=== PATIENT | female | born 1990 | race Caucasian/White ===

== ENCOUNTER 2024-12-07 19:08 | Emergency (ER) | payer BC, SELFPAY ==
--- NOTE | ~2024-12-07 | CT_ITS ---
EXAMINATION: CT abdomen pelvis w con DATE: 12/08/2024 01:47 INDICATION: Abdominal pain. Vomiting. Abnormal liver function tests. TECHNIQUE: Computed tomography (CT) of the abdomen and pelvis was performed with 100 mL Omnipaque 350 intravenous contrast. Automated exposure control and iterative reconstruction technique were employed. The dose-length product was 1615.42 mGy-cm. COMPARISON: None. FINDINGS: The lung bases demonstrate mild atelectasis. No pleural effusion. The heart size is normal. No pericardial effusion. The liver is normal. The gallbladder is normal in size. Material in the gallbladder may be sludge or stones. There are changes of gastric sleeve procedure. The spleen is normal. There is fat stranding around the pancreas, consistent with acute interstitial pancreatitis. The adrenal glands and right kidney are normal. There is a 5 mm stone in left kidney. There is diverticulosis of the colon without evidence of diverticulitis. There are no dilated loops of bowel. The appendix is normal. There are no pathologically enlarged lymph nodes. There is no free intraperitoneal fluid. There is severe lumbar spondylosis and mild thoracic spondylosis. IMPRESSION: 1. Acute interstitial pancreatitis. Reviewed, dictated and finalized at location E.
[2024-12-07 19:12] VITALS: BP 141/75; PULSE 67; RESP 18; TEMP 36.4; O2SAT 100
--- NOTE | 2024-12-07 21:37 | ED.ABDPAIN ---
HPI - Abdominal Pain General Chief Complaint: Abdominal Pain <Bridget Doyle PA-C - Last Filed: 12/08/24 14:11> Stated Complaint: abd pain, vomiting <Bridget Doyle PA-C - Last Filed: 12/08/24 14:11> Time Seen by Provider: 12/07/24 21:09 <Bridget Doyle PA-C - Last Filed: 12/08/24 14:11> Source: patient <Bridget Doyle PA-C - Last Filed: 12/08/24 14:11> Mode of arrival: ambulatory <DECLAN Castaneda Last Filed: 12/08/24 14:11> Limitations: no limitations <Bridget Doyle PA-C - Last Filed: 12/08/24 14:11> History of Present Illness HPI narrative: This is a 34 year old female that presents to the ER for abdominal pain. Ongoing over the last couple of days. Reports upper abdominal pain, nausea, vomiting. Not able to keep much down. <Bridget Doyle PA-C - Last Filed: 12/08/24 14:11> Related Data Allergies/Adverse Reactions: Allergies Allergy/AdvReac Type Severity Reaction Status Date / Time No Known Allergies Allergy Mild Unverified 03/23/08 10:20 <Bridget Doyle PA-C - Last Filed: 12/08/24 14:11> Review of Systems Review of Systems: All systems reviewed & are unremarkable except as noted in HPI and below <Bridget Doyle PA-C - Last Filed: 12/08/24 14:11> PMFSH Past Medical History Medical History: Medical History (Updated 12/08/24 @ 14:09 by Bridget Doyle PA-C) Diabetes mellitus <Bridget Doyle PA-C - Last Filed: 12/08/24 14:11> Exam Narrative: GENERAL: Well-appearing, well-nourished, and in no acute distress. HEAD: Normocephalic, atraumatic. EYES: EOMI. CHEST: Clear to auscultation. No respiratory distress. No wheezes rales or rhonchi HEART: Regular rate and rhythm. No murmur heard. Normal peripheral pulses. ABDOMEN: Soft, nondistended, normal active bowel sounds. Tender to palpation in epigastrium and right upper quadrant, without guarding EXTREMITIES: Normal range of motion. No edema. SKIN: Warm, dry, no rash. NEURO: No focal deficits. Alert and oriented x3. PSYCH: Normal mood and affect <Bridget Doyle PA-C - Last Filed: 12/08/24 14:11> Course [employer]ATION HELPER/PA Physician Supervision this visit was performed with an APC and myself. I performed all aspects of the MDM as documented. <Marcos Holden MD - Last Filed: 12/08/24 19:09> Consultations Consultation #1: spoke with general surgery about patient and workup. Recommends transfer to bariatric center due to previous gastric sleeve <Bridget Doyle PA-C - Last Filed: 12/08/24 14:11> Date: 12/08/24 <Bridget Doyle PA-C - Last Filed: 12/08/24 14:11> Consultation #2: [facility] accepts the patient as transfer <Bridget Doyle PA-C - Last Filed: 12/08/24 14:11> Date: 12/08/24 <Bridget Doyle PA-C - Last Filed: 12/08/24 14:11> Vital Signs Vital signs: Vital Signs Temperature 36.4 C L 12/07/24 19:12 Pulse Rate 67 12/07/24 19:12 Respiratory Rate 18 12/07/24 19:12 Blood Pressure 141/75 H 12/07/24 19:12 Pulse Oximetry 100 12/07/24 19:12 Oxygen Delivery Room Air 12/07/24 19:12 Temperature 36.6 C 12/08/24 07:49 Pulse Rate 62 12/08/24 07:49 Respiratory Rate 18 12/08/24 07:49 Blood Pressure 101/60 12/08/24 07:49 Pulse Oximetry 94 12/08/24 07:49 Oxygen Delivery Room Air 12/07/24 19:12 <Bridget Doyle PA-C - Last Filed: 12/08/24 14:11> Vital Signs Temperature 36.4 C L 12/07/24 19:12 Pulse Rate 67 12/07/24 19:12 Respiratory Rate 18 12/07/24 19:12 Blood Pressure 141/75 H 12/07/24 19:12 Pulse Oximetry 100 12/07/24 19:12 Oxygen Delivery Room Air 12/07/24 19:12 Temperature 36.6 C 12/08/24 07:49 Pulse Rate 62 12/08/24 07:49 Respiratory Rate 18 12/08/24 07:49 Blood Pressure 101/60 12/08/24 07:49 Pulse Oximetry 94 12/08/24 07:49 Oxygen Delivery Room Air 12/07/24 19:12 <Marcos Holden MD - Last Filed: 12/08/24 19:09> MDM - Abdominal Pain MDM Narrative Medical decision making narrative: Patient presents the emergency department for epigastric, right upper quadrant abdominal pain. Reports associated nausea and vomiting. She is afebrile and nontoxic appearing. Her vitals are stable. Cbc without leukocytosis. Metabolic panel with transaminitis, mild hyperbilirubinemia. Urine without evidence of infection. CT abdomen and pelvis showing pancreatitis. Some inflammation surrounding the gallbladder. Spoke with general surgery about patient and workup. Recommends transfer to bariatric center due to previous gastric sleeve. [facility] accepts the patient as transfer <Bridget Doyle PA-C - Last Filed: 12/08/24 14:11> Differential Diagnosis Differential diagnosis: Likely pancreatitis and other (Biliary colic, cholecystitis) <Bridget Doyle PA-C - Last Filed: 12/08/24 14:11> Lab Data Attestation: I reviewed the patient's lab results. <Bridget Doyle PA-C - Last Filed: 12/08/24 14:11> Result diagrams: 12/07/24 22:04 12/07/24 22:04 <DECLAN Castaneda Last Filed: 12/08/24 14:11> Labs: Lab Results 12/07/24 12/07/24 Range/Units 22:04 23:58 WBC 9.8 (4.5-10.0) K/mm3 RBC 4.88 (4.2-5.4) M/mm3 Hgb 14.7 (12.0-15.0) g/dL Hct 43.9 (37.0-47.0) % MCV 90.0 (80-100) fl MCH 30.1 (26-34) pg MCHC 33.5 (32-36) g/dl RDW 13.0 (11.5-14.5) % Plt Count 314 (150-375) k/mm3 MPV 9.3 (7.4-10.4) fl Immature Gran % (Auto) 0.5 (0-0.5) % Neut % (Auto) 74.4 H (45.5-73.1) % Lymph % (Auto) 15.8 L (18.3-44.2) % [place] % (Auto) 7.7 (2.6-8.5) % Eos % (Auto) 1.3 (0-4.4) % Baso % (Auto) 0.3 (0.2-1.2) % Lymph # (Auto) 1.55 (0.9-3.2) K/mm3 [place] # (Auto) 0.8 H (0.1-0.6) K/mm3 Eos # (Auto) 0.1 (0-0.3) K/mm3 Baso # (Auto) 0.0 (0.0-0.1) K/mm3 Abs Immat Gran (auto) 0.05 H (0.00-0.031) K/mm3 Absolute Neuts (auto) 7.3 H (1.3-6.7) K/mm3 Absolute Nucleated RBC 0.000 (0.0-0.012) K/mm3 Nucleated RBC % 0.0 (0.0-0.2) % Sodium 137 (137-145) mmol/L Potassium 3.9 (3.4-5.0) mmol/L Chloride 104 (98-107) mmol/L Carbon Dioxide 26 (22-30) mmol/L Anion Gap 7 (4-12) mmol/L BUN 9 (7-17) mg/dL Creatinine 0.68 L (0.7-1.0) mg/dL Estim Creat Clear Calc 146 ml/min Estimated GFR > 60 (59 - ) Glucose 107 (65-110) mg/dL Calcium 9.1 (8.4-10.2) mg/dL Total Bilirubin 1.6 H (0.2-1.3) mg/dL AST 420 H (14-36) U/L ALT 717 H (6-35) U/L Alkaline Phosphatase 181 H (38-126) U/L Total Protein 7.9 (6.3-8.2) g/dL Albumin 4.3 (3.5-5.1) g/dL Lipase 49763 H (23-300) U/L Urine Color Dark yellow (Yellow) Urine Appearance Clear (Clear) Urine pH 5.0 (5.0-9.0) Ur Specific [place] 1.019 (1.001-1.035) Urine Protein Negative (Negative) mg/dL Urine Glucose (UA) Negative (Negative) mg/dL Urine Ketones Trace H (Negative) mg/dL Ur Blood (Man) Negative (Negative) Urine Nitrate Negative (Negative) Urine Bilirubin 2+ H (Negative) Urine Urobilinogen 1.0 (<2.0) mg/dL Add Ur Microanalysis Reviewed Leukocyte Esterase Rfl Trace H (Negative) ALE/UL Urine RBC 11-20 H (0-2) /hpf Urine WBC 0-5 (0-3) /hpf Ur Squamous Epith Cells None seen (Few) /hpf Urine Bacteria None seen /hpf Urine Casts 0-2 Urine Test Negative <Bridget Doyle PA-C - Last Filed: 12/08/24 14:11> Lab Results 12/07/24 12/07/24 Range/Units 22:04 23:58 WBC 9.8 (4.5-10.0) K/mm3 RBC 4.88 (4.2-5.4) M/mm3 Hgb 14.7 (12.0-15.0) g/dL Hct 43.9 (37.0-47.0) % MCV 90.0 (80-100) fl MCH 30.1 (26-34) pg MCHC 33.5 (32-36) g/dl RDW 13.0 (11.5-14.5) % Plt Count 314 (150-375) k/mm3 MPV 9.3 (7.4-10.4) fl Immature Gran % (Auto) 0.5 (0-0.5) % Neut % (Auto) 74.4 H (45.5-73.1) % Lymph % (Auto) 15.8 L (18.3-44.2) % [place] % (Auto) 7.7 (2.6-8.5) % Eos % (Auto) 1.3 (0-4.4) % Baso % (Auto) 0.3 (0.2-1.2) % Lymph # (Auto) 1.55 (0.9-3.2) K/mm3 [place] # (Auto) 0.8 H (0.1-0.6) K/mm3 Eos # (Auto) 0.1 (0-0.3) K/mm3 Baso # (Auto) 0.0 (0.0-0.1) K/mm3 Abs Immat Gran (auto) 0.05 H (0.00-0.031) K/mm3 Absolute Neuts (auto) 7.3 H (1.3-6.7) K/mm3 Absolute Nucleated RBC 0.000 (0.0-0.012) K/mm3 Nucleated RBC % 0.0 (0.0-0.2) % Sodium 137 (137-145) mmol/L Potassium 3.9 (3.4-5.0) mmol/L Chloride 104 (98-107) mmol/L Carbon Dioxide 26 (22-30) mmol/L Anion Gap 7 (4-12) mmol/L BUN 9 (7-17) mg/dL Creatinine 0.68 L (0.7-1.0) mg/dL Estim Creat Clear Calc 146 ml/min Estimated GFR > 60 (59 - ) Glucose 107 (65-110) mg/dL Calcium 9.1 (8.4-10.2) mg/dL Total Bilirubin 1.6 H (0.2-1.3) mg/dL AST 420 H (14-36) U/L ALT 717 H (6-35) U/L Alkaline Phosphatase 181 H (38-126) U/L Total Protein 7.9 (6.3-8.2) g/dL Albumin 4.3 (3.5-5.1) g/dL Lipase 12911 H (23-300) U/L Urine Color Dark yellow (Yellow) Urine Appearance Clear (Clear) Urine pH 5.0 (5.0-9.0) Ur Specific [place] 1.019 (1.001-1.035) Urine Protein Negative (Negative) mg/dL Urine Glucose (UA) Negative (Negative) mg/dL Urine Ketones Trace H (Negative) mg/dL Ur Blood (Man) Negative (Negative) Urine Nitrate Negative (Negative) Urine Bilirubin 2+ H (Negative) Urine Urobilinogen 1.0 (<2.0) mg/dL Add Ur Microanalysis Reviewed Leukocyte Esterase Rfl Trace H (Negative) ALE/UL Urine RBC 11-20 H (0-2) /hpf Urine WBC 0-5 (0-3) /hpf Ur Squamous Epith Cells None seen (Few) /hpf Urine Bacteria None seen /hpf Urine Casts 0-2 Urine Test Negative <Marcos Holden MD - Last Filed: 12/08/24 19:09> Imaging Data Radiologist's impression: ITS Impressions Abdomen/Pelvis CT 12/08/24 07:10 IMPRESSION: 1. Acute interstitial pancreatitis. CT abd/pelvis: Mild edema surrounding the pancreas, concerning for pancreatitis. Mild wall thickening of the adjacent duodenum <Bridget Doyle PA-C - Last Filed: 12/08/24 14:11> ITS Impressions Abdomen/Pelvis CT 12/08/24 07:10 IMPRESSION: 1. Acute interstitial pancreatitis. <Marcos Holden MD - Last Filed: 12/08/24 19:09> Critical Care Time Critical Care Time Critical Care Time: No <Bridget Doyle PA-C - Last Filed: 12/08/24 14:11> Discharge Plan Discharge Clinical Impression: Gallstone pancreatitis <Bridget Doyle PA-C - Last Filed: 12/08/24 14:11> Patient Disposition: Acute Care Hospital <Bridget Doyle PA-C - Last Filed: 12/08/24 14:11> Condition: Stable <Bridget Doyle PA-C - Last Filed: 12/08/24 14:11> Instructions: Antibiotic Form <DECLAN Castaneda Last Filed: 12/08/24 14:11> Patient Language: Citizen Of [place] <Bridget Doyle PA-C - Last Filed: 12/08/24 14:11> Follow-up/Referrals: Ghazal,MD Soy [Primary Care Provider, Unknown] <Bridget Doyel PA-C - Last Filed: 12/08/24 14:11>
[2024-12-07 22:02] VITALS: BP 115/66; PULSE 64; RESP 18; TEMP 37; O2SAT 96
[2024-12-07 22:09] LABS: Hematocrit 43.9 % (37.0-47.0); Hemoglobin 14.7 g/dL (12.0-15.0); Immature Granulocyte Percent A 0.5 % (0-0.5); Lymphocytes Absolute Auto 1.55 K/mm3 (0.9-3.2); Mean Corpuscular HGB Conc 33.5 g/dl (32-36); Mean Corpuscular Hemoglobin 30.1 pg (26-34); Mean Corpuscular Volume 90.0 fl (80-100); Nucleated Red Blood Cells Absolute Auto 0.000 K/mm3 (0.0-0.012); Nucleated Red Blood Cells Perc 0.0 % (0.0-0.2); Platelet Count Result 314 k/mm3 (150-375); Red Blood Count 4.88 M/mm3 (4.2-5.4); White Blood Count 9.8 K/mm3 (4.5-10.0)
[2024-12-07] MEDS: MORPHINE SULFATE (*CRX) 4 MG/ML INJ IV PUSH (22:11)
[2024-12-07] MEDS: LACTATED RINGERS 1,000 ML 999 ML IV CONT (22:11)
[2024-12-07] MEDS: ONDANSETRON INJ 4 MG/2 ML VIAL IV PUSH (22:11)
[2024-12-07] MEDS: FAMOTIDINE 20 MG/2 ML VIAL IV PUSH (22:11)
[2024-12-07 22:25] LABS: Alanine Aminotransferase 717 U/L (6-35); Albumin Level 4.3 g/dL (3.5-5.1); Alkaline Phosphatase 181 U/L (38-126); Anion Gap 7 mmol/L (4-12); Aspartate Amino Transferase 420 U/L (14-36); Bilirubin,Total 1.6 mg/dL (0.2-1.3); Blood Urea Nitrogen 9 mg/dL (7-17); Calcium 9.1 mg/dL (8.4-10.2); Carbon Dioxide 26 mmol/L (22-30); Chloride 104 mmol/L (98-107); Estimated CRCL calculation 146 ml/min; Estimated Glomerular Filt Rate > 60; Glucose 107 mg/dL (65-110); Potassium 3.9 mmol/L (3.4-5.0); Sodium 137 mmol/L (137-145); Total Protein 7.9 g/dL (6.3-8.2)
[2024-12-07 22:30] VITALS: BP 96/58; PULSE 66; RESP 18; O2SAT 97
[2024-12-07 22:52] LABS: Lipase 11002 U/L (23-300)
[2024-12-07 23:00] VITALS: BP 98/49; PULSE 65; RESP 18; O2SAT 94
[2024-12-07 23:30] VITALS: BP 98/61; PULSE 67; RESP 18; O2SAT 95
[2024-12-08] VITALS (8 sets, daily range): BP systolic 89–108; BP diastolic 53–71; PULSE 58–66; RESP 18; TEMP 36.6; O2SAT 94–97
[2024-12-08] MEDS: KETOROLAC 15 MG/ML VIAL (*BKC) IV PUSH (00:09)
[2024-12-08 00:18] LABS: Add Urine Microscopic? YES; Appearance Urine Clear (Clear); Glucose Urine UA Negative (Negative); Leukocyte Esterase Ur Trace LEU/UL (Negative); Need Manual Microscopic Reviewed; Nitrate Urine Negative (Negative); Non Pathogenic Casts 0-2; Specific Grav Ur 1.019 (1.001-1.035)
[2024-12-08 01:06] LABS: Pregnancy On Board Control Positive
[2024-12-08] MEDS: MORPHINE SULFATE (*CRX) 4 MG/ML INJ IV PUSH (02:44)
[2024-12-08] MEDS: LACTATED RINGERS 1,000 ML 999 ML IV CONT (02:46)
[2024-12-08] MEDS: PIPERACILLIN/TAZOBACTAM SOD 3.375 GM in SODIUM CHLORIDE 0.9% IV 50 ML 100 ML IVPB (05:00)
[2024-12-08] MEDS: HYDROmorphone HCL INJ (*CRX) 1 MG/ML SYR IV PUSH (07:45)
== END 2024-12-08 09:46 | disposition short-term general hospital (02) ==
PROVIDERS: Emergency Provider Physician Assistant; PCP Hospitalist
DX: K85.10 Biliary acute pancreatitis without necrosis or infection (principal); E11.9 Type 2 diabetes mellitus without complications
CPT/HCPCS: 36415; 74177; 80053; 81001; 81025; 83690; 85025; 96361; 96365; 96374; 96375; 99285; J1171; J1885; J2270; J2405; J2543; J7120; Q9967